=== PATIENT | male | born 1955 | race Caucasian/White ===

== ENCOUNTER 2019-05-04 00:22 | Inpatient (IN) | payer MEDICARE ==
[~2019-05-04] VITALS: Ht 180.3 cm; Wt 95.3 kg
[2019-05-04 01:19] LABS: ETHANOL < 3 MG/DL (0-0)
[2019-05-04 01:28] LABS: THYROID STIMULATING HORMONE 2.458 mIU/mL (0.358-3.740)
[2019-05-04] MEDS ORDERED: IV NS 1000 ML 1,000 ML IV ONE (01:45)
[2019-05-04] MEDS ORDERED: ZIPRASIDONE MESYLATE 20 MG VIAL IM ONE ×2 (01:53→02:00)
[2019-05-04] MEDS ORDERED: MAG HYDROX/AL HYDROX/SIMETH 30 ML LIQUID UDC PO PRN (02:45)
[2019-05-04] MEDS ORDERED: MAGNESIUM HYDROXIDE 30 ML LIQUID UDC PO PRN (02:45)
[2019-05-04] MEDS ORDERED: LORAZEPAM 0.5 MG TABLET PO PRN ×2 (02:45→13:00)
[2019-05-04] MEDS ORDERED: ZOLPIDEM 5 MG TABLET PO PRN (02:45)
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
--- NOTE | 2019-05-04 06:00 | NUR ---
slept 1.5 hours, total. continues to sleep. no distress noted.
[2019-05-04 07:30] VITALS: BP 113/76
[2019-05-04] MEDS: ACETAMINOPHEN 325 MG TABLET PO PRN (09:36)
[2019-05-04] MEDS ORDERED: LORAZEPAM 2 MG/1 ML VIAL IM ONE (10:45)
[2019-05-04] MEDS ORDERED: OLANZAPINE 10 MG VIAL IM ONE (10:45)
--- NOTE | 2019-05-04 11:03 | NUR ---
Patient ambulating up and down hallway. Going in and out of other patients rooms, pulling things off the wall. Posturing and escalating. Attempted to redirect many times. Patient very confused and becoming hostile and noncooperative. Dr. Boo notified. Order received for IM injection Zyprexa 5 mg and Ativan 1MG. Security present to maintain calm environment. Patient tolerated well. Monitoring for safety and monitoring Resp status. No distress at this time.
--- NOTE | 2019-05-04 12:44 | NUR ---
Social Work Note/Family Contact: aids social worker contacted patients daughter Cortney ([phone]) stated that she is the POA of patient and will bring documentations when she visits patient. aids social worker educated patient on [id number] and discussed treatment plan/discharge plan. Per Cortney, she stated that she would want patient back home upon discharge.
--- NOTE | 2019-05-04 12:44 | NUR ---
Social Work Note/Initial Discharge Planning: Patient currently resides at [address] [place] [address]; [phone]. Per pts daughter Cortney ([phone]) she stated that she would want patient back home. Per Cortney, she is the POA of patient. agricultural service worker will work with the patient and the MD regarding appropriate discharge planning. agricultural service worker will form a safe and proper discharge.
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
[2019-05-04 16:00] VITALS: BP 127/78
[2019-05-04] MEDS: QUETIAPINE FUMARATE 25 MG TABLET PO SCH ×2 (16:52→21:43)
[2019-05-04 20:00] VITALS: BP 159/93
[2019-05-04] MEDS ORDERED: HALOPERIDOL LACTATE 5 MG/1 ML VIAL IM ONE (20:00)
[2019-05-04] MEDS ORDERED: diphenhydrAMINE 50 MG/1 ML VIAL IM ONE (20:00)
--- NOTE | 2019-05-04 20:00 | NUR ---
GPS/NSG Patient first observed awake sitting in esdras-chair unkempt, disheveled appearance. Responding to stimuli, appears to be hallucinating, also mumbling incoherently. Patient observed to be confused becoming hostile and noncooperative with periods of agitation, and escalating, restless behavior is visible. Several attempts to redirect made by staff. Dr. Boo notified. IM injection administered as ordered with security present to maintain calm and safe environment. Will continue to monitor vital signs prn.
--- NOTE | 2019-05-04 21:00 | NUR ---
pt is slightly calmer. continues to be distracted by internal stimuli. assisted with diaper change, with 3 staff assisting. pt was combative during care, but calmed down afterwards. currently up in esdras chair, talking to self. is sleeping intermittently.
[2019-05-04] MEDS: ATORVASTATIN 10 MG TABLET PO SCH (21:43)
[2019-05-04] MEDS: MEMANTINE HCL 10 MG TABLET PO SCH (21:43)
[2019-05-04] MEDS: DIVALPROEX SPRINKLE 125 MG CAP.SPRINK PO SCH (21:43)
--- NOTE | 2019-05-04 22:30 | NUR ---
pt remained restless, and agitated. staff attempted to assist him to bed, but he tried to strike staff. routine medications were given at 2142. as of 2229, he is asleep, in the chair. no distress noted. will continue to monitor closely.
[2019-05-05] MEDS: LORAZEPAM 1 MG TABLET PO PRN ×2 (05:09→22:07)
--- NOTE | 2019-05-05 05:09 | NUR ---
pt is now awake, and restless. po fluids and PRN ativan was given, at this time. he remains disorganized, but no aggressive behaviors noted.
--- NOTE | 2019-05-05 06:00 | NUR ---
slept 3.45 hours, total. assisted with am care. currently in bed. no distress noted.
[2019-05-05 07:30] VITALS: BP 126/78
[2019-05-05 07:42] LABS: BASOPHILS % (AUTO) 0.2 % (0.0-2.0); EOSINOPHILS % (AUTO) 0.5 % (0.0-7.0); HEMATOCRIT 41.6 % (36.7-47.1); HEMOGLOBIN 13.5 g/dL (12.5-16.3); LYMPHOCYTES # (AUTO) 1.3 K/uL (20.0-40.0); LYMPHOCYTES % (AUTO) 12.9 % (20.5-51.5); MEAN CORPUSCULAR HEMOGLOBIN 26.2 uug (23.8-33.4); MEAN CORPUSCULAR HGB CONC 33 g/dL (32.5-36.3); MEAN CORPUSCULAR VOLUME 80.5 fL (73.0-96.2); MONOCYTES # (AUTO) 0.7 K/uL (2.0-10.0); NEUTROPHILS # (AUTO) 8.2 K/uL (1.8-8.9); NEUTROPHILS % (AUTO) 79.4 % (38.5-71.5); PLATELET COUNT (AUTO) 179 K/uL (152-348); RED BLOOD CELL COUNT(AUTO) 5.17 MIL/uL (4.06-5.63); WHITE BLOOD COUNT (AUTO) 10.3 K/uL (3.6-10.2)
[2019-05-05 07:48] LABS: MAGNESIUM 2.1 mg/dL (1.8-2.4); PHOSPHOROUS 3.5 mg/dL (2.5-4.9); POTASSIUM 3.8 mmol/L (3.5-5.1)
--- NOTE | 2019-05-05 08:34 | NUR ---
Social Work Note/Family Contact: black off worker received vernell Rahman DPOA documentations and it states that she is the DPOA of patient since September 2016.
[2019-05-05] MEDS: QUETIAPINE FUMARATE 25 MG TABLET PO SCH ×3 (09:00→20:06)
[2019-05-05] MEDS: DIVALPROEX SPRINKLE 125 MG CAP.SPRINK PO SCH ×2 (09:00→20:06)
[2019-05-05] MEDS: MEMANTINE HCL 10 MG TABLET PO SCH ×2 (09:00→20:06)
[2019-05-05] MEDS: DONEPEZIL 10 MG TABLET PO SCH (11:01)
--- NOTE | 2019-05-05 11:36 | NUR ---
Social Work Note/DPOA: bingo worker reviewed through DPOA documentation for daughter Cortney and she is responsible for patients medical and financial decisions. This film writer looked through patients son DPOA documentation and he is only responsible for financial decisions.
--- NOTE | 2019-05-05 15:35 | NUR ---
Social Work Note/Family Contact: relief worker spoke to patients daughter Cortney ([phone]) and she stated that she is feeling frustrated with her fathers condition. relief worker educated her on patients illness and provided emotional support. Cortney, reported that her brother Daniel and her are not getting along at the moment and wanted this field underwriter not to state any information to her brother.
[2019-05-05] MEDS ORDERED: HALOPERIDOL LACTATE 5 MG/1 ML VIAL IM ONE (15:45)
[2019-05-05] MEDS ORDERED: diphenhydrAMINE 50 MG/1 ML VIAL IM ONE (15:45)
--- NOTE | 2019-05-05 15:45 | NUR ---
Gps/Licensed Home Inspector- Patient awake, got oob, wandering around the unit, trying to openned doors. Difficulty redirecting patient,, noted irritability, and starting agitation when being redirected. Paving around, with blue blanket wrapped around him ,no underwear/no pants. Dr Boo was called by Heart Specialist orders received.
--- NOTE | 2019-05-05 15:47 | NUR ---
Social Work Note/Family Contact: plant and equipment worker contacted patients son Daniel ([phone]) and stated that he is the DPOA of financial decisions and not medical decisions. He stated that "he only wants the best for his father". This flex o writer operator addressed that the staff will provided a safe environment for patient.
--- NOTE | 2019-05-05 16:00 | NUR ---
Gps/Parish Worker- Called Security guards (2) to assist staff to administer intramuscular medications R/T patient potential aggression during mediciations administrations, and during his care. Kept patient up on his esdras-chair for safety..
[2019-05-05 17:09] VITALS: BP 114/83
--- NOTE | 2019-05-05 18:31 | NUR ---
Gps/Brim Pouncer- Patient's daughter in to visit, interacting fairly well with the patient.Able to eat sandwich , juice offered. Kept up on his esdras-chair, monitored closely for safety.
[2019-05-05 20:00] VITALS: BP 120/79
[2019-05-05] MEDS: ATORVASTATIN 10 MG TABLET PO SCH (20:06)
[2019-05-06 07:30] VITALS: BP 119/72
[2019-05-06] MEDS: DONEPEZIL 10 MG TABLET PO SCH (09:00)
[2019-05-06] MEDS: QUETIAPINE FUMARATE 25 MG TABLET PO SCH ×4 (09:00→20:54)
[2019-05-06] MEDS: DIVALPROEX SPRINKLE 125 MG CAP.SPRINK PO SCH ×3 (09:00→20:53)
[2019-05-06] MEDS: MEMANTINE HCL 10 MG TABLET PO SCH ×2 (09:00→20:53)
[2019-05-06] MEDS ORDERED: diphenhydrAMINE 50 MG/1 ML VIAL IM ONE (10:15)
[2019-05-06] MEDS ORDERED: LORAZEPAM 2 MG/1 ML VIAL IM ONE (10:15)
[2019-05-06] MEDS ORDERED: HALOPERIDOL LACTATE 5 MG/1 ML VIAL IM ONE (10:15)
--- NOTE | 2019-05-06 10:15 | NUR ---
GPS: Nursing Notes: Chemical Restraint: Patient is awake and wandering around the unit, getting into other pt's room, AWOL risk, pushing the exit doors hard, "I want to go home..", threatening behavior toward staff and peers, scaring female resident, episodes of bumping into staff, unable to be redirected, confused, disoriented, poor insight, impaired judgment, refusing his PO medications, posturing toward staff when redirected him, Dr. Kemp covering for Dr. Boo ordered: Haldol 5mg IM, Ativan 1mg IM and Benadryl 25mg IM X1 STAT, B/P=119/72, P=72, R=18, continue to monitor for safety, continue with treatment plan.
--- NOTE | 2019-05-06 10:45 | NUR ---
GPS: Nursing Notes: Reassessment of Chemical Restraint: Patient is less agitated, became calm, continue to be confused, disoriented, but less irritable, medication IM STAT was helpful, continue to monitor for safety, R=18, continue with treatment plan.
[2019-05-06] MEDS: LORAZEPAM 1 MG TABLET PO PRN ×2 (14:23→20:58)
[2019-05-06 17:39] VITALS: BP 142/88
[2019-05-06 20:32] VITALS: BP 116/83
[2019-05-06] MEDS: ATORVASTATIN 10 MG TABLET PO SCH (20:53)
--- NOTE | 2019-05-07 01:48 | NUR ---
RECEIVED PATIENT SITTING IN THE GALLITO CHAIR AND ATTEMPTING TO GET OUT OF IT.HE STRIPPED OFF HIS GOWN AND KEPT TRYING TO PICK SOMETHING FROM THE FLOOR. HE KEPT TALKING TO HIMSELF BUT COULD NOT SAY WHAT OR WHO HE WAS TALKING TO. HE APPEARED INTERNALLY PRE OCCUPIED. HES CONFUSED AND DISORIENTED. HE HOWEVER TOOK HIS MEDICATIONS WITH VANILLA PUDDING.IN BED,VISUAL CHECKS MADE ON HIM.WILL CONTINUE TO MONITOR.
--- NOTE | 2019-05-07 06:47 | NUR ---
HE SLEPT FOR APPROX.04;00HRS. BED BATH GIVEN.REPOSITIONED.
[2019-05-07 07:30] VITALS: BP 128/68
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
--- NOTE | 2019-05-07 08:20 | NUR ---
GPS: Nursing Notes: Pt's Daughter Spoke with Psychiatrist: Per nursing ward service supervisor-Marimar, stating that Cortney was telling her that no psychiatrist has spoken to her, but Dr. Kemp spoke with Cortney yesterday, even the charge nurse dialed for the psychiatrist so he can speak with her, continue to monitor for safety, continue with treatment plan.
[2019-05-07] MEDS: QUETIAPINE FUMARATE 25 MG TABLET PO SCH ×3 (10:09→20:55)
[2019-05-07] MEDS: MEMANTINE HCL 10 MG TABLET PO SCH ×2 (10:09→20:55)
[2019-05-07] MEDS: DONEPEZIL 10 MG TABLET PO SCH (10:09)
[2019-05-07] MEDS: DIVALPROEX SPRINKLE 125 MG CAP.SPRINK PO SCH ×2 (10:09→20:51)
[2019-05-07 16:00] VITALS: BP 148/85
[2019-05-07 20:41] VITALS: BP 142/74
[2019-05-07] MEDS: ATORVASTATIN 10 MG TABLET PO SCH (20:51)
[2019-05-07] MEDS: LORAZEPAM 1 MG TABLET PO PRN (21:17)
--- NOTE | 2019-05-08 00:22 | NUR ---
RECEIVED PATIENT SLEEPING BUT WOKE UP SHORTLY THEREAFTER.HE KEPT MUMBLING TO HIMSELF.SNACKS GIVEN, AND WAS MED COMPLIANT. HE KEPT TALKING TO HIMSELF BUT COULD NOT SAY WHAT OR WHO HE WAS TALKING TO. HE APPEARED INTERNALLY PRE OCCUPIED. HES CONFUSED AND DISORIENTED. HE HOWEVER TOOK HIS MEDICATIONS WITH VANILLA PUDDING.IN BED,VISUAL CHECKS MADE ON HIM.WILL CONTINUE TO MONITOR.
--- NOTE | 2019-05-08 06:31 | NUR ---
SLEPT FOR APPROX.06;45HRS. GIVEN ATIVAN AT 21;20.CHANGED AND MADE COMFORTABLE IN BED.
[2019-05-08 07:30] VITALS: BP 123/67
[2019-05-08] MEDS: QUETIAPINE FUMARATE 25 MG TABLET PO SCH ×3 (08:39→20:03)
[2019-05-08] MEDS: DONEPEZIL 10 MG TABLET PO SCH (08:40)
[2019-05-08] MEDS: MEMANTINE HCL 10 MG TABLET PO SCH ×2 (08:40→20:03)
[2019-05-08] MEDS: DIVALPROEX SPRINKLE 125 MG CAP.SPRINK PO SCH ×2 (08:40→20:03)
--- NOTE | 2019-05-08 11:11 | NUR ---
Social Work Note/APS Report: This specifications writer made an APS through [facility] (Intake ID [id number]) report in regards to patients daughter Cortney ([phone]) and Daniel ([phone]) who have DPOA conflict.
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
--- NOTE | 2019-05-08 14:30 | NUR ---
Social Work Note/Family Contact: cement storage worker contacted patients daughter Cortney ([phone]) and discussed treatment plan and discharge plan. Per Cortney, she accepted for patient to be placed at a SNF and would like her father to be at a local SNF. This resume writer will work with the psychiatrist to find placement.
[2019-05-08 15:46] VITALS: BP 119/67
--- NOTE | 2019-05-08 16:12 | NUR ---
Social Work Note/Coordination of Care: culture room worker contacted Fatoumata from [facility] ([phone]) and sent patients [facility] psychiatric notes and progress notes.
[2019-05-08] MEDS: ATORVASTATIN 10 MG TABLET PO SCH (20:02)
[2019-05-08 20:37] VITALS: BP 148/74
[2019-05-08] MEDS: LORAZEPAM 1 MG TABLET PO PRN (21:30)
[2019-05-09] MEDS: LORAZEPAM 1 MG TABLET PO PRN ×2 (03:33→19:24)
[2019-05-09 07:51] VITALS: BP 125/75
[2019-05-09] MEDS: DONEPEZIL 10 MG TABLET PO SCH (08:21)
[2019-05-09] MEDS: DIVALPROEX SPRINKLE 125 MG CAP.SPRINK PO SCH ×2 (08:21→20:02)
[2019-05-09] MEDS: QUETIAPINE FUMARATE 25 MG TABLET PO SCH ×2 (08:21→16:29)
[2019-05-09] MEDS: MEMANTINE HCL 10 MG TABLET PO SCH ×2 (08:22→20:02)
--- NOTE | 2019-05-09 10:02 | NUR ---
Social Work Note/Coordination of Care: photographic process worker was contacted by Fatoumata from [facility] and stated that they are unable to accept patient due to behavioral issues.
--- NOTE | 2019-05-09 10:02 | NUR ---
Social Work Note/Coordination of Care: asbestos worker helper faxed Enid from [facility] ([phone]) H & P psychiatric notes and progress notes.
--- NOTE | 2019-05-09 10:25 | NUR ---
Social Work Note/Family Contact: textile worker contacted patients daughter Cortney ([phone]) who agreed for this medical underwriter to look into [facility].
--- NOTE | 2019-05-09 11:50 | NUR ---
Social Work Note/Individual Therapy: metal control worker met with patient for brief counseling. Patient has been improving and has been more engaged in conversation. Patient was able to express that he feels "happy today". Patient continues to wander in the hallway and entering in other peers rooms. metal control worker provide emotional support and actively listened. metal control worker was able to redirect patient and he was cooperative.
--- NOTE | 2019-05-09 12:22 | NUR ---
Social Work Note/Coordination of Care: farmworker chicken farm spoke to Enid from [facility] who declined patient due to behavioral issues.
--- NOTE | 2019-05-09 15:07 | NUR ---
Social Work Note/Coordination of Care: alteration worker contacted Staci admin coordinator from [facility] ([phone]) who stated that patient is accepted.
--- NOTE | 2019-05-09 15:10 | NUR ---
Social Work Note/Family Contact: sugar mill worker contacted patients daughter Cortney ([phone]) and this account underwriter addressed that patient is accepted to [facility]. Per Cortney, she agreed with this plan.
[2019-05-09 16:00] VITALS: BP 129/82
[2019-05-09] MEDS: ATORVASTATIN 10 MG TABLET PO SCH (20:02)
[2019-05-09] MEDS: QUETIAPINE FUMARATE 100 MG TABLET PO SCH (20:14)
[2019-05-09 20:24] VITALS: BP 138/85
[2019-05-09] MEDS ORDERED: QUETIAPINE FUMARATE 25 MG TABLET PO SCH (21:00)
[2019-05-10 07:30] VITALS: BP 133/81
[2019-05-10] MEDS: DIVALPROEX SPRINKLE 125 MG CAP.SPRINK PO SCH ×2 (08:05→20:16)
[2019-05-10] MEDS: DONEPEZIL 10 MG TABLET PO SCH (08:05)
[2019-05-10] MEDS: QUETIAPINE FUMARATE 25 MG TABLET PO SCH ×3 (08:05→17:51)
[2019-05-10] MEDS: MEMANTINE HCL 10 MG TABLET PO SCH ×2 (08:05→20:16)
--- NOTE | 2019-05-10 10:20 | NUR ---
Social Work Note/Hearing: grey roll worker contacted patients daughter Cortney, ([phone]) and notified patients probable cause of hearing today. This documentation writer left a voicemail.
[2019-05-10 16:00] VITALS: BP 132/74
[2019-05-10] MEDS: ATORVASTATIN 10 MG TABLET PO SCH (20:16)
[2019-05-10] MEDS: QUETIAPINE FUMARATE 100 MG TABLET PO SCH (20:16)
[2019-05-10] MEDS: diphenhydrAMINE 50 MG CAPSULE PO PRN (20:59)
[2019-05-10 21:31] VITALS: BP 155/85
[2019-05-10] MEDS: LORAZEPAM 1 MG TABLET PO PRN (22:18)
[2019-05-10] MEDS: ACETAMINOPHEN 325 MG TABLET PO PRN (22:31)
[2019-05-11 07:30] VITALS: BP 141/91
[2019-05-11 08:08] LABS: BASOPHILS % (AUTO) 0.8 % (0.0-2.0); EOSINOPHILS # (AUTO) 0.3 K/uL (0.0-0.7); EOSINOPHILS % (AUTO) 5.1 % (0.0-7.0); HEMATOCRIT 43.9 % (36.7-47.1); HEMOGLOBIN 14.3 g/dL (12.5-16.3); LYMPHOCYTES # (AUTO) 1.5 K/uL (20.0-40.0); LYMPHOCYTES % (AUTO) 23.3 % (20.5-51.5); MEAN CORPUSCULAR HEMOGLOBIN 26.5 uug (23.8-33.4); MEAN CORPUSCULAR HGB CONC 33 g/dL (32.5-36.3); MEAN CORPUSCULAR VOLUME 81.5 fL (73.0-96.2); MONOCYTES # (AUTO) 0.5 K/uL (2.0-10.0); MONOCYTES % (AUTO) 8.6 % (0.0-11.0); NEUTROPHILS # (AUTO) 3.9 K/uL (1.8-8.9); NEUTROPHILS % (AUTO) 62.2 % (38.5-71.5); PLATELET COUNT (AUTO) 169 K/uL (152-348); RED BLOOD CELL COUNT(AUTO) 5.39 MIL/uL (4.06-5.63); WHITE BLOOD COUNT (AUTO) 6.3 K/uL (3.6-10.2)
[2019-05-11 08:16] LABS: CREATININE 0.9 mg/dL (0.6-1.3); POTASSIUM 3.6 mmol/L (3.5-5.1)
[2019-05-11] MEDS: DONEPEZIL 10 MG TABLET PO SCH (08:46)
[2019-05-11] MEDS: DIVALPROEX SPRINKLE 125 MG CAP.SPRINK PO SCH ×2 (08:46→20:05)
[2019-05-11] MEDS: QUETIAPINE FUMARATE 25 MG TABLET PO SCH ×3 (08:46→16:52)
[2019-05-11] MEDS: MEMANTINE HCL 10 MG TABLET PO SCH ×2 (08:46→20:06)
--- NOTE | 2019-05-11 12:00 | NUR ---
Gps/Coffee Sommelier- Patient in deep sleep, tries to awakened pt. for lunch, unable .
--- NOTE | 2019-05-11 16:36 | NUR ---
Gps/Fusion Juncture Grinder- Patient continue to wanders around pushing/checking doors. Continues redirections provided.
[2019-05-11 16:49] VITALS: BP 133/90
[2019-05-11] MEDS: ATORVASTATIN 10 MG TABLET PO SCH (20:06)
[2019-05-11] MEDS ORDERED: QUETIAPINE FUMARATE 100 MG TABLET PO SCH (21:00)
[2019-05-11 21:15] VITALS: BP 142/90
[2019-05-11] MEDS: diphenhydrAMINE 50 MG CAPSULE PO PRN (21:45)
[2019-05-11] MEDS: LORAZEPAM 1 MG TABLET PO PRN (23:53)
--- NOTE | 2019-05-12 02:23 | NUR ---
GPS: Pt.is still awake,anxious,restless and difficult to re-direct. Confused,disoriented and disorganized. Poor insight to present situation. Attempting to wander/pace along the hallways. All prn meds.were already given for anxiety/sleep and ineffective. Staff literally doing 1:1 supervision for safety purposes. Constant re-direction provided. Will continue to monitor.
[2019-05-12] MEDS: LORAZEPAM 1 MG TABLET PO PRN (06:20)
[2019-05-12] MEDS: QUETIAPINE FUMARATE 25 MG TABLET PO SCH ×3 (11:11→17:03)
[2019-05-12] MEDS: MEMANTINE HCL 10 MG TABLET PO SCH ×2 (11:11→20:18)
[2019-05-12] MEDS: DIVALPROEX SPRINKLE 125 MG CAP.SPRINK PO SCH ×2 (11:11→20:17)
[2019-05-12] MEDS: DONEPEZIL 10 MG TABLET PO SCH (11:12)
--- NOTE | 2019-05-12 11:18 | NUR ---
Gps.Associate Pastor- Awakened, noted bladder incontienence, walking around with wet pajama, 4 staff needed to assist patient in changing his pajama, as well soks. Patient resistive to his care, routine meds. was administered in increments hesitancy to take routine meds. Continue to paced around , monitored safety
--- NOTE | 2019-05-12 12:48 | NUR ---
Gps/Bioinformatics Specialist- Found asleep in other patient's bed, difficulty redirecting patient gets irritable, remains confused/disoriented ,safety emphasized, continued closed supervision
--- NOTE | 2019-05-12 14:45 | NUR ---
Social Work Note/Individual Therapy: electrical lineworker met with patient for brief counseling. Patient appeared to be confused, however; patient was able to state his name. Patient is disoriented but this report writer was able to re-direct patient. Due to patients cognitive impairment he is unable to locate his room/dinning room/bathroom. This report writer guided patient to the lactations.
--- NOTE | 2019-05-12 15:40 | NUR ---
Gps/Career Counselor- Wanders around, . fluids offered, encouraged ,continued redirections, looking for the bathroom, continent of bladder this pm.
--- NOTE | 2019-05-12 17:00 | NUR ---
Gps/Visual Merchandising Associate- BS 68, has 120 ml of apple juice , offered early dinner, ate fairly well.
[2019-05-12 18:23] VITALS: BP 109/70
--- NOTE | 2019-05-12 18:24 | NUR ---
Gps/Cafe Server- Family in to visit, stayed with patient during him dinner., ate fairly well, adequate intake. Patient able to recognized his grandaughter , conversing with them with incoherent /confused speech .Remains needs for constant redirection , tends to wander to other patient's room .
[2019-05-12] MEDS: ATORVASTATIN 10 MG TABLET PO SCH (20:17)
[2019-05-12] MEDS: QUETIAPINE FUMARATE 200 MG TABLET PO SCH (20:25)
[2019-05-12 20:52] VITALS: BP 146/85
[2019-05-12] MEDS ORDERED: QUETIAPINE FUMARATE 100 MG TABLET PO SCH (21:00)
[2019-05-12] MEDS: ACETAMINOPHEN 325 MG TABLET PO PRN (21:51)
[2019-05-12] MEDS: ZOLPIDEM 5 MG TABLET PO PRN (21:51)
--- NOTE | 2019-05-12 21:51 | NUR ---
PATIENT ALERT BUT WITH CONFUSED, PATIENT RESTLESS WHILE IN RECLINING CHAIR, PATIENT TRIES TO STAND UP FROM THE RECLINING CHAIR, PATIENT UNREDIRECTABLE, IN COHERENT. PATIENT WAS GIVEN SLEEPING MEDICATION AND TYLENOL FOR ANTICIPATED PAIN AND DISCOMFORT. CONT TO MONITOR.
[2019-05-13 07:30] VITALS: BP 114/74
[2019-05-13] MEDS: DIVALPROEX SPRINKLE 125 MG CAP.SPRINK PO SCH ×2 (09:14→20:02)
[2019-05-13] MEDS: DONEPEZIL 10 MG TABLET PO SCH (09:14)
[2019-05-13] MEDS: MEMANTINE HCL 10 MG TABLET PO SCH ×2 (09:14→20:03)
[2019-05-13] MEDS: QUETIAPINE FUMARATE 25 MG TABLET PO SCH ×3 (09:14→16:50)
[2019-05-13] MEDS: LORAZEPAM 1 MG TABLET PO PRN (12:02)
[2019-05-13 16:00] VITALS: BP 129/82
[2019-05-13] MEDS: ATORVASTATIN 10 MG TABLET PO SCH (20:02)
[2019-05-13] MEDS: QUETIAPINE FUMARATE 200 MG TABLET PO SCH (20:02)
[2019-05-13 21:20] VITALS: BP 142/86
--- NOTE | 2019-05-13 22:00 | NUR ---
received to care, wandering around the unit, intrusive with peers and staff, requiring almost constant redirection. compliant with medications, and staff direction. as of 2200, he appears calmer, up in esdras chair, talking to self. no distress noted. will continue to monitor closely.
[2019-05-13] MEDS: ACETAMINOPHEN 325 MG TABLET PO PRN (22:08)
[2019-05-13] MEDS: ZOLPIDEM 5 MG TABLET PO PRN (22:08)
--- NOTE | 2019-05-13 22:08 | NUR ---
remains awake. PRN abien was given, at this time.
--- NOTE | 2019-05-14 00:30 | NUR ---
assisted to bed, fell immediately asleep.
--- NOTE | 2019-05-14 06:00 | NUR ---
slept 5.0 hours, total. continues to sleep. no distress noted.
[2019-05-14 07:30] VITALS: BP 119/92
[2019-05-14] MEDS: QUETIAPINE FUMARATE 25 MG TABLET PO SCH ×3 (08:52→17:37)
[2019-05-14] MEDS: DONEPEZIL 10 MG TABLET PO SCH (08:52)
[2019-05-14] MEDS: MEMANTINE HCL 10 MG TABLET PO SCH ×2 (08:53→20:10)
[2019-05-14] MEDS: DIVALPROEX SPRINKLE 125 MG CAP.SPRINK PO SCH ×2 (08:53→20:10)
[2019-05-14] MEDS: ACETAMINOPHEN 325 MG TABLET PO PRN ×2 (12:20→21:52)
[2019-05-14 16:00] VITALS: BP 139/52
--- NOTE | 2019-05-14 17:30 | NUR ---
Gps/Lpn- Family here to visit, , interacting with his family. Remains to wander around, but had been redirection.
[2019-05-14 20:00] VITALS: BP 111/83
[2019-05-14] MEDS: ATORVASTATIN 10 MG TABLET PO SCH (20:10)
[2019-05-14] MEDS: QUETIAPINE FUMARATE 200 MG TABLET PO SCH (20:10)
[2019-05-14] MEDS: ZOLPIDEM 5 MG TABLET PO PRN (21:52)
--- NOTE | 2019-05-14 22:00 | NUR ---
received to care, very disorganized, wandering around the unit, intrusive with peers and staff, requiring almost constant redirection. compliant with medications, and staff direction. PRN esequiel was given at 2151. as of 2199, he remains awake, up in esdras chair, talking to self. restless, assisted to the bathroom several times to urinate. also had several episodes of urinary incontinence. will continue to monitor closely.
[2019-05-14] MEDS: LORAZEPAM 1 MG TABLET PO PRN (23:03)
--- NOTE | 2019-05-14 23:03 | NUR ---
remains awake, and restless. assisted to bed, but got right back up. gait is unsteady. assisted to esdras chair for safety. PRN ativan was given, at this time, for anxiety. will continue to monitor closely.
[2019-05-15 00:28] LABS: *BILIRUBIN,URIN NEGATIVE (NEGATIVE); *BLOOD, URINE NEGATIVE (NEGATIVE); *CLARITY,URINE CLEAR (CLEAR); *COLOR,URINE YELLOW (YELLOW); *KETONES,URINE NEGATIVE (NEGATIVE); *UROBILINOGEN,URINE 0.2 E.U./dl (NORMAL); LEUKOCYTE ESTERASE ,URINE NEGATIVE (NEGATIVE); NITRITE, URINE NEGATIVE (NEGATIVE); UGLUCOSE NEGATIVE (NEGATIVE)
--- NOTE | 2019-05-15 01:59 | NUR ---
remains awake, and restless. has been sleeping intermittently. appears distracted by internal stimuli. up in esdras chair, for safety.
--- NOTE | 2019-05-15 06:00 | NUR ---
slept 1.25 hours. is now asleep. no distress noted.
[2019-05-15 07:30] VITALS: BP 124/83
[2019-05-15] MEDS: QUETIAPINE FUMARATE 25 MG TABLET PO SCH ×3 (08:15→16:36)
[2019-05-15] MEDS: DONEPEZIL 10 MG TABLET PO SCH (08:15)
[2019-05-15] MEDS: MEMANTINE HCL 10 MG TABLET PO SCH ×2 (08:15→20:00)
[2019-05-15] MEDS: DIVALPROEX SPRINKLE 125 MG CAP.SPRINK PO SCH ×2 (08:16→20:00)
[2019-05-15 15:26] VITALS: BP 139/68
[2019-05-15 18:20] LABS: *BILIRUBIN,URIN NEGATIVE (NEGATIVE); *BLOOD, URINE NEGATIVE (NEGATIVE); *CLARITY,URINE SLIGHTLY CLOUDY (CLEAR); *COLOR,URINE YELLOW (YELLOW); *KETONES,URINE NEGATIVE (NEGATIVE); *UROBILINOGEN,URINE 0.2 E.U./dl (NORMAL); LEUKOCYTE ESTERASE ,URINE NEGATIVE (NEGATIVE); NITRITE, URINE NEGATIVE (NEGATIVE); PH,URINE 8.5 (5.0-8.0); UGLUCOSE NEGATIVE (NEGATIVE)
[2019-05-15 18:28] LABS: BACTERIA,URINE FEW /HPF (NONE SEEN); RBC,URINE 0-3 /HPF (0-3); SQUAMOUS EPITHELIAL CELL,UR NONE SEEN /HPF (NONE SEEN); URINE AMORPHOUS PHOSPHATES MANY /HPF; WBC,URINE 0-3 /HPF (0-3)
[2019-05-15 18:29] LABS: MUCUS,URINE MODERATE /LPF (0-FEW)
[2019-05-15 20:00] VITALS: BP 154/88
[2019-05-15] MEDS: QUETIAPINE FUMARATE 200 MG TABLET PO SCH (20:00)
[2019-05-15] MEDS: CLONAZEPAM 1 MG TABLET PO SCH (20:00)
[2019-05-15] MEDS: ATORVASTATIN 10 MG TABLET PO SCH (20:00)
--- NOTE | 2019-05-15 22:00 | NUR ---
received to care, appearing confused, wandering about the unit, but easy to redirect. compliant with medications, and staff direction. he went to sleep, around 2100, after taking his medications. as of 2200, he remains asleep. no distress noted. will continue to monitor closely.
--- NOTE | 2019-05-16 06:00 | NUR ---
slept 8.5 hours, total. continues to sleep. no distress noted.
[2019-05-16 07:30] VITALS: BP 128/80
[2019-05-16] MEDS: MEMANTINE HCL 10 MG TABLET PO SCH ×2 (09:08→20:00)
[2019-05-16] MEDS: DIVALPROEX SPRINKLE 125 MG CAP.SPRINK PO SCH ×2 (09:08→20:00)
[2019-05-16] MEDS: DONEPEZIL 10 MG TABLET PO SCH (09:08)
[2019-05-16] MEDS: QUETIAPINE FUMARATE 25 MG TABLET PO SCH ×3 (09:08→16:22)
--- NOTE | 2019-05-16 09:36 | NUR ---
Social Work Note/Family Contact: renal social worker contacted patients daughter Cortney ([phone]) and stated that patient will be discharged 05/17/19 to [facility]. Per Cortney, she agreed.
[2019-05-16 16:00] VITALS: BP 140/80
[2019-05-16 17:26] VITALS: BP 140/80
[2019-05-16] MEDS: CLONAZEPAM 1 MG TABLET PO SCH (20:00)
[2019-05-16] MEDS: ATORVASTATIN 10 MG TABLET PO SCH (20:00)
[2019-05-16 20:01] VITALS: BP 135/81
[2019-05-16] MEDS: QUETIAPINE FUMARATE 200 MG TABLET PO SCH (20:01)
--- NOTE | 2019-05-16 22:00 | NUR ---
received to care, appearing confused, wandering about the unit, but easy to redirect. compliant with medications, and staff direction. as of 2199, he appears to be asleep. no distress noted. will continue to monitor closely.
[2019-05-16] MEDS: LORAZEPAM 1 MG TABLET PO PRN (23:27)
[2019-05-16] MEDS: ACETAMINOPHEN 325 MG TABLET PO PRN (23:27)
--- NOTE | 2019-05-16 23:27 | NUR ---
remains restless, repeatedly getting out of bed, intrusive with peers in bed, difficult to redirect. PRN ativan was given, and he was placed in the esdras chair at nurses station, for safety. continues to talk to self. will continue to monitor closely.
--- NOTE | 2019-05-17 02:30 | NUR ---
pt continued to be restless, since last entry. at 0200, he was assisted with a shower, and helped back to bed. as of 0, he is asleep. no distress noted. will continue to monitor closely.
[2019-05-17 07:30] VITALS: BP 129/87
--- NOTE | 2019-05-17 08:02 | NUR ---
Social Work Note/Discharge: Patient will be discharged to [facility] facility to [facility] [address] [place] [address]; ([phone]) via Ambulance transportation at 12:00pm. Electrician Constructor Supervisor spoke with Staci, Supervisor Of Guidance And Testing at [facility] ([phone]) who stated patient will be accepted at facility today. Patient is alert and oriented x1, and is not able to plan for self-care at this time, but is willing to accept care provided for his at the facility. Patient denies any suicidal or homicidal ideations. Patient is aware and agreeable with discharge plans. Patients daughter Cortney ASHLEY, ([phone]) is aware and agreeable with discharge plans. Patient will continue to follow-up with (psychiatrist) Dr. Estrada and (director work) Dr. Diaz. Patient presents with euthymic mood and congruent affect.
--- NOTE | 2019-05-17 08:03 | NUR ---
Social Work Note/Firearms Report: Solid Plasterer completed and submitted a [employer] firearms report for 5250 grave disability certification. A copy of report has been placed in patient chart.
[2019-05-17] MEDS: QUETIAPINE FUMARATE 25 MG TABLET PO SCH ×2 (09:04→12:38)
[2019-05-17] MEDS: DIVALPROEX SPRINKLE 125 MG CAP.SPRINK PO SCH (09:04)
[2019-05-17] MEDS: MEMANTINE HCL 10 MG TABLET PO SCH (09:04)
[2019-05-17] MEDS: DONEPEZIL 10 MG TABLET PO SCH (09:04)
--- NOTE | 2019-05-17 13:05 | NUR ---
Patient is discharged to [facility] via ambulance. Pt is confused as per baseline but cooperative. Report was called to the facility. VS are stable. No distress.
== END 2019-05-17 13:00 | DRG 885 ==
LOC: ER 00:29 → GPS 02:26
PROVIDERS: ADMIT Psychiatry & Neurology Psychiatry; ATTEND Student in an Organized Health Care Education/Training Program
DX: F29 Unspecified psychosis not due to a substance or known physiological condition (principal); F03.91 Unspecified dementia, unspecified severity, with behavioral disturbance; E78.5 Hyperlipidemia, unspecified; D72.829 Elevated white blood cell count, unspecified; R79.89 Other specified abnormal findings of blood chemistry; E86.0 Dehydration; Z79.899 Other long term (current) drug therapy
CPT/HCPCS: 36415; 70450; 83735; 84100; 84443; 85025; 87086; 93005; A4663; G0480; J1200; J1630; J2060; J2358; J3486; J7030